=== PATIENT | female | born 1990 | race Two or more races ===

== ENCOUNTER → 2024-10-16 | Outpatient (CLI) | payer MEDICAID, SELFPAY ==
--- NOTE | 2024-10-16 13:30 | XR_ITS ---
Examination: Abdomen sonogram, Limited Date and time of exam: October 16, 2024 1423 hours INDICATIONS: Elevated liver enzymes on laboratory examination performed one week ago Technique: Real-time vargas scale transabdominal sonographic images of the upper abdomen obtained. Findings: Normal gallbladder Normal common bile duct 0.2 cm Pancreatic head 2.2 cm Liver 17.9 cm fatty infiltration no focal liver lesions Normal hepatopedal portal venous flow Patent IVC IMPRESSION: Normal gallbladder Normal common bile duct Mild hepatomegaly fatty liver
== END | disposition home or self-care (01) ==
PROVIDERS: PCP Physician Assistant; Referring Provider Physician Assistant; Visit Provider Physician Assistant
DX: K76.0 Fatty (change of) liver, not elsewhere classified (principal)
CPT/HCPCS: 76705

== ENCOUNTER 2025-06-27 07:09 | Emergency (ER) | payer MEDICAID, SELFPAY ==
[2025-06-27 07:09] VITALS: BMI 29.2
[2025-06-27 07:16] VITALS: BP 128/84; PULSE 80; RESP 18; TEMP 36.8; O2SAT 98
--- NOTE | 2025-06-27 07:38 | PD.EDEAR ---
ED Ear RME/HPI General Chief complaint: Ear Stated complaint: RT EAR PAIN Time Seen by Provider: 06/27/25 07:11 Arrival date/time: 06/27/25 07:09 34-year-old female with no stated medical problems presents to the emergency department for complaints of cough and right ear pain patient reports symptom onset 2 days ago reports nothing symptoms better or worse quality throbbing nature no radiation of symptom severity moderate reports no treatment prior to arrival Limitations: no limitations Related Data Previous Rx's ?Medication ?Instructions ?Recorded albuterol sulfate 90 mcg/actuation 2 puff inhalation Q6H PRN 06/14/21 aerosol inhaler (ProAir HFA) shortness of breath or wheezing #8.5 grams prednisone 10 mg tablet See Taper PO QDAY #13 tabs 06/19/21 amoxicillin 875 mg-potassium 1 tab PO BID 7 days #14 tabs 06/27/25 clavulanate 125 mg tablet clotrimazole 1 % topical solution 1 applic topical BID 10 days #30 mL 06/27/25 fluconazole 150 mg tablet 150 mg PO Q3D 2 doses #2 tabs 06/27/25 ibuprofen 600 mg tablet 600 mg PO Q6H #30 tabs 06/27/25 ofloxacin 0.3 % ear drops 10 drop otic (ear) QDAY 10 days 06/27/25 #10 mL Allergies Allergy/AdvReac Type Severity Reaction Status Date / Time No Known Allergies Allergy Verified 06/27/25 07:11 Review of Systems Review of Systems Systems Reviewed: All systems reviewed, normal except as documented Constitutional Constitutional: Reports system reviewed and no additional complaints, except as documented, Denies fever(s) and Denies headache(s) Eyes Eyes: Reports system reviewed and no additional complaints, except as documented and Denies blurry vision ENT Ears, Nose, Mouth, and Throat: Reports system reviewed and no additional complaints, except as documented, Reports otalgia, Denies headache(s), Denies nasal congestion and Denies nasal discharge Cardiovascular Cardiovascular: Reports system reviewed and no additional complaints, except as documented, Denies chest pain and Denies dyspnea Respiratory Respiratory: Reports system reviewed and no additional complaints, except as documented, Reports chest congestion, Reports cough and Denies dyspnea Gastrointestinal Gastrointestinal: Reports system reviewed and no additional complaints, except as documented and Denies abdominal pain Integumentary/Breasts Skin/Breast: Reports system reviewed and no additional complaints, except as documented and Denies rash Neurologic Neurologic: Reports system reviewed and no additional complaints, except as documented, Reports as per HPI and Denies headache(s) Past Medical History Past Medical History NEUROLOGIC: Negative Neurological Disorders or Seizures CARDIAC: Negative Cardiac Disorders or Congestive Heart Failure RESPIRATORY: Negative Chronic Obstructive Pulmonary Disease (COPD) or Tuberculosis GASTROINTESTINAL: Positive Gastrointestinal Disorders and Hemorrhoids; Negative Hepatitis or Colorectal Cancer GENITOURINARY: Negative Genitourinary Disorders or Renal Disease REPRODUCTIVE: Positive Previous Pregnancies; Negative Breast Cancer, Endometriosis, Pelvic Inflammatory Disease or Uterine Prolapse MUSCULOSKELETAL: Negative Musculoskeletal Disorders or Bone Cancer ENDOCRINE: Negative Endocrine Disorders, Diabetes Mellitus Type 1 or Diabetes Mellitus Type 2 HEMATOLOGIC: Negative Blood Disorders OTHER HISTORY: Positive Chicken Pox; Negative Autoimmune Disease, Blood Transfusions, Blood Transfusion Reaction, Anesthesia Reactions, Organ Transplant, MRSA, VRSA, Vancomycin-Resistant Enterococci, Breast Cancer, Cervical Cancer, Colorectal Cancer, Lung Cancer or Ovarian Cancer Family History FAMILY HISTORY: Positive Family Cardiac Disorders; Negative Family Psychiatric Problems, Family Respiratory Disorders, Family Gastrointestinal Problems, Family Cancer, Family Surgery or Family Anesthesia Reaction Surgical History SURGICAL: Positive Section; Negative Cardiac Surgery, Endocrine Surgery, Ear Surgery, Abdominal Surgery, Joint Replacement, Neurologic Surgery or Organ Transplant Social History SMOKING STATUS: Never smoker ED Exam General Limitations: Present no limitations General appearance: Present alert and in no apparent distress Head Head exam: Present atraumatic, normocephalic and normal inspection Eye Eye exam: Present normal appearance, PERRL and EOMI; Absent conjunctival injection ENT ENT exam: Present mucous membranes moist Expanded ENT Exam TM/Canal exam: Right TM: erythema (Presentation consistent with fungal infection) Neck Neck exam: Present normal inspection, full ROM and trachea midline Chest Chest inspection: Present normal inspection and symmetric chest wall rise Respiratory Respiratory exam: Present normal lung sounds bilaterally; Absent respiratory distress Cardiovascular Cardiovascular exam: Present regular rate, normal rhythm and normal heart sounds Abdominal Exam Abdominal exam: Present soft and normal bowel sounds; Absent distention, tenderness, guarding, rebound or rigidity Extremities Exam Extremities exam: Present normal inspection and full ROM Back Exam Back exam: Present normal inspection and full ROM Neurological Exam Neurological exam: Present alert, oriented X3 and CN II-XII intact Psychiatric Psychiatric exam: Present normal affect and normal mood Skin Skin exam: Present warm, dry, intact and normal color Course Quality Measures none Orders Category Date Time Status Bedside Blood Glucose NOW Care 06/27/25 07:35 Completed Vital Signs Vital signs: Vital Signs Temperature 98.2 F 06/27/25 07:16 Pulse Rate 80 06/27/25 07:16 Respiratory Rate 18 06/27/25 07:16 Blood Pressure 128/84 06/27/25 07:16 Pulse Oximetry (%) 98 06/27/25 07:16 Oxygen Delivery Method Room Air 06/27/25 07:16 O2 saturation 98% on room air within normal limits Ear Patient data External records reviewed:: [facility] previous records Clinical information provided by:: patient Social determinants that could affect healthcare access:: none Patient has the following chronic illnesses:: None How is presenting disease/condition affected by chronic disease/condition?: no chronic disease Evaluation data The following diagnostics were reviewed and interpreted by me:: other (specify) (N/A) Lab and/or radiology exams considered but not ordered:: Considered not ordered Interpretation Summary: N/A Medications / Prescriptions Medications or Prescriptions considered but not ordered:: Given Medication administrations:: Given Consultations Consultation(s) initiated? (list below): No Diagnosis Most likely diagnosis given after review of the tests above:: Fungal ear infection Admission Indicated Admission indicated?: not indicated Admission Request Was there a request for admission?: No Disposition Plan Disposition Plan: Discharge Discharge Attestation Discharge Attestation: The patient and all family members were given an opportunity to ask questions and understood the discharge instructions. Discharge instructions specifically effects, indications for sooner follow up or return to the emergency department, and the expected course of current diagnosis. Patient condition: Stable Medical Decision Making MDM Narrative MDM Narrative: 34-year-old female with no stated medical problems presents to the emergency department for complaints of cough and right ear pain patient reports symptom onset 2 days ago reports nothing symptoms better or worse quality throbbing nature no radiation of symptom severity moderate reports no treatment prior to arrival On exam patient well-appearing patient does not appear look toxic no acute distress Based on symptomatology symptoms are consistent with fungal ear infection Bedside blood sugar obtained 196 most likely patient has diabetes Explained to the patient she is to follow-up with her primary care doctor get an A1c level further evaluation and referral to specialist for her right ear patient states understanding At time of discharge patient is in no distress Differential Diagnosis Differential Diagnosis: Otitis media, otitis externa, eustachian tube dysfunction, URI Medical Records Medical records reviewed: Yes I reviewed the patient's medical records. Discharge Plan Plan Patient Disposition: HOME (Self Care) Discharge Disposition comment: Stable Prescriptions/Referrals Prescriptions/Med Rec: New clotrimazole 1 % solution 1 applic topical BID 10 Days Qty: 30 0RF ibuprofen 600 mg tablet 600 mg PO Q6H Qty: 30 0RF amoxicillin-pot clavulanate 875-125 mg tablet 1 tab PO BID 7 Days Qty: 14 0RF fluconazole 150 mg tablet 150 mg PO Q3D Qty: 2 0RF Rx Instructions: may repeat second dose 72 hrs after first dose if symptoms persist ofloxacin 0.3 % drops 10 drop otic (ear) QDAY 10 Days Qty: 10 0RF No Action albuterol sulfate [ProAir HFA] 90 mcg/actuation HFA aerosol inhaler 2 puff inhalation Q6H PRN (Reason: shortness of breath or wheezing) Qty: 8.5 0RF prednisone 10 mg tablet See Taper PO QDAY Qty: 13 0RF Taper: Prednisone Taper 20 mg DAILY for 2 Days and 0 Hour 10 mg DAILY for 2 Days and 0 Hour 5 mg DAILY for 7 Days and 0 Hour Problem List Clinical Impression: Fungal ear infection, Elevated blood sugar Patient/Caregiver Discharge Instructions Education Materials: Anatomy of the Ear Additional Instructions: Please follow up with your primary care doctor in the next 24-48hrs for any worsening symptoms return here immediately Based on your presentation you appear to have a fungal infection in your ear I suggest you see your PCP as soon as possible for further evaluation and possible referral to specialist. I checked her blood sugar which is 196 most likely this indicates that you are diabetic you need to follow-up and have an A1c level checked as well as further evaluation with PCP Print Language: Guinean Stand Alone Forms: Chrissy Award Info., Work/School Release, Patient Portal Info Letter PA/DIRECTOR AUTOMOT[employer] Supervising Physician PA/PETE Supervising Physician: Dr. SOSA
== END 2025-06-27 07:48 | disposition home or self-care (01) ==
LOC: SERX 08:33
PROVIDERS: Emergency Provider Emergency Medicine; PCP Physician Assistant
DX: B48.8 Other specified mycoses (principal); R73.9 Hyperglycemia, unspecified
CPT/HCPCS: 99283